=== PATIENT | female | born 1980 | race Caucasian/White ===

== ENCOUNTER 2018-07-12 14:58 | Emergency (ER) | payer OTHER ==
[2018-07-12 15:09] VITALS: RESP 20
[2018-07-12] MEDS ORDERED: IBUPROFEN 800 MG TAB PO STA (17:14)
--- NOTE | 2018-07-12 17:21 | ED ---
General Adult HPI - General Chief complaint: Abdominal Pain Stated complaint: groin pain/post Time Seen by Provider: 07/12/18 16:20 Source: patient Mode of arrival: ambulatory Limitations: no limitations - History of Present Illness Initial comments: This 29-year-old female who denies past medical history status post 1.5 month ago presenting today for chief complaint of requiring pain. Patient states she is done more walking recently and she is used to, and thinks she strained something. She states she noticed increasing right groin pain. She denies increasing pain with cough or bearing down. Patient denies any redness, bulging, masses or warm to palpation. Patient denies any rashes or lesions of the right groin. Patient states that the pain increases with any range of motion of the right hip is especially abduction. Patient denies any trauma, injury or falls. Patient denies any fever, chills, night sweats, lower extremity edema, pallor or coolness of extremity, vaginal bleeding/discharge/ odor, pelvic or abdominal pain/pain to palpation of abdomen. I discussed that upon triage they noted pelvic pain pt states she does not have any pelvic pain. Only right groin pain. Remainder was negative, Patient denies any recent fever , chills, shortness of breath, chest pain, back pain, abdominal pain, nausea or vomiting, numbness or tingling, dysuria or hematuria, constipation or diarrhea, headaches or visual changes, or any other complaints. - Related Data Allergies Allergy/AdvReac Type Severity Reaction Status Date / Time morphine Allergy Unknown Verified 07/12/18 15:08 Review of Systems ROS Statement: Those systems with pertinent positive or pertinent negative responses have been documented in the HPI. ROS Other: All systems not noted in ROS Statement are negative. Past Medical History Additional Past Medical History / Comment(s): cerebral palsy History of Any Multi-Drug Resistant Organisms: None Reported Past Surgical History: Section, Tubal Ligation Past Psychological History: Depression Smoking Status: Current every day smoker Past Alcohol Use History: None Reported Past Drug Use History: None Reported General Exam - General Exam Comments Initial Comments: General: The patient is awake and alert, in no distress, and does not appear acutely ill. Eye: Pupils are equal, round and reactive to light, extra-ocular movements are intact. No nystagmus. There is normal conjunctiva bilaterally. No signs of icterus. Ears, nose, mouth and throat: There are moist mucous membranes and no oral lesions. Neck: The neck is supple, there is no tenderness or JVD. Cardiovascular: There is a regular rate and rhythm. No murmur, rub or gallop is appreciated. Respiratory: Lungs are clear to auscultation, respirations are non-labored, breath sounds are equal. No wheezes, stridor, rales, or rhonchi. Gastrointestinal: Soft, non-distended, non-tender abdomen without masses or organomegaly noted. There is no rebound or guarding present. No CVA tenderness. Bowel sounds are unremarkable. Musculoskeletal: Normal ROM, with tenderness with abduction and forward flexion at the hip. Pain is reproducible to palpation of the right groin, no palpable masses. Femoral pulses S2 equal bilaterally. No noted lower extremity edema, there are equal comparison. Dorsalis pedis pulses +2. Extremity is or warmth to palpation. No overlying rashes or lesions. Patient does not admit to increased pain with bearing down. No prolonged mass upon coughing in the right groin.. Strength 5/5 of the lower extremities equally bilaterally. Sensation intact. Compartments are soft and compressible Neurological: A&O x 3. CN II-XII intact, There are no obvious motor or sensory deficits. Coordination appears grossly intact. Speech is normal. Skin: Skin is warm and dry and no rashes or lesions are noted. incision healing, no signs of dehiscence or discharge. Psychiatric: Cooperative, appropriate mood & affect, normal judgment. Limitations: no limitations Course Vital Signs 07/12/18 15:06 Temperature 97.6 F Pulse Rate 66 Respiratory 20 Rate Blood Pressure 117/77 O2 Sat by Pulse 97 Oximetry Medical Decision Making - Medical Decision Making Physical examination findings appear consistent with right groin strain. No infectious or vascular clinical findings present. Ultrasound negative for any masses. Patient neurovascular intact. Pulses strong. At this time I feel patient is stable for discharge with primary care follow-up next 1-2 days. Patient is agreeable plan and discharged. She states she thinks she just strained her right groin. Patient is to return for any worsening symptoms. I discussed return parameters at length, patient verbalizes understanding. Patient was discharged in stable condition. Appearing well. Vital signs within acceptable limits. I discussed the case with attending Dr. Rosa who agrees impression plan. Patient was discharged in stable condition appearing well. Disposition Clinical Impression: Groin strain Disposition: HOME SELF-CARE Condition: Good Instructions: Groin Strain (ED) Additional Instructions: Please use medication as discussed. Please follow-up with family doctor in the next 2 days. Please return to emergency room if the symptoms increase or worsen or for any other concerns. Is patient prescribed a controlled substance at d/c from ED?: No Referrals: None,Stated [Primary Care Provider] - 1-2 days [facility] Natalie saeed [NON-STAFF] - 1-2 days Time of Disposition: 17:20
--- NOTE | 2018-07-12 18:12 | US ---
EXAMINATION TYPE: US groin RT DATE OF EXAM: 07/12/2018 COMPARISON: NONE CLINICAL HISTORY: 37-year-old female Pain in right groin TECHNIQUE: Multiple sonographic images of the right inguinal region were obtained. 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 No other ab normality visualized . IMPRESSION: A few lymph nodes in the right inguinal region, largest is borderline in size at 1.3 cm short axis. N o other sonographic abnormality seen along the right groin.
[2018-07-12] MEDS ORDERED: HYDROcodone/APAP 5-325MG 1 EACH TAB PO STA (19:01)
[2018-07-12 19:51] VITALS: BP 137/89; PULSE 56; TEMP 96.9
== END 2018-07-12 20:04 | disposition home or self-care (01) ==
LOC: EC 14:58
DX: S39.011A Strain of muscle, fascia and tendon of abdomen, initial encounter (principal); F17.200 Nicotine dependence, unspecified, uncomplicated; Z88.5 Allergy status to narcotic agent; Z98.890 Other specified postprocedural states; X50.9XXA Other and unspecified overexertion or strenuous movements or postures, initial encounter; Y93.01 Activity, walking, marching and hiking
CPT/HCPCS: 99284